=== PATIENT | male | born 1960 | race Two or more races ===

== ENCOUNTER 2025-03-20 10:01 | Emergency (ER) | payer MEDICAID ==
[~2025-03-20] VITALS: Ht 182.9 cm; Wt 80.0 kg
[2025-03-20 10:07] VITALS: O2SAT 96
[2025-03-20 10:45] LABS: BASOPHILS % 0.9 % (0.0-2.0); EOSINOPHILS % 5.4 % (0.0-5.0); HEMATOCRIT. 36.5 % (42.0-52.0); HEMOGLOBIN. 11.6 g/dL (14.0-18.0); LYMPHOCYTES % 17.8 % (20.0-50.0); MEAN PLATELET VOLUME 8.0 fl (7.4-10.4); MONOCYTES % 9.5 % (2.0-8.0); NEUTROPHILS % 66.4 % (40.0-76.0); PLATELET 309 x1000/uL (130-400); RED BLOOD CELL COUNT 4.66 mill/uL (4.7-6.1); RED CELL DISTRIBUTION WIDTH 20.1 % (11.6-14.6)
[2025-03-20 11:05] LABS: CREATININE 0.9 mg/dL (0.6-1.3); UREA NITROGEN BLOOD 9 mg/dL (9-23)
[2025-03-20 11:06] LABS: ETHANOL BLOOD 63 mg/dL (<10)
[2025-03-20 11:07] LABS: ASPARTATE AMINOTRANSFERASE 31 IU/L (<34); BILIRUBIN DIRECT 0.1 mg/dL (<=3.0)
[2025-03-20 11:08] LABS: BILIRUBIN TOTAL 0.5 mg/dL (0.1-1.0); PROTEIN TOTAL 7.7 g/dL (6.0-8.3)
[2025-03-20 11:27] LABS: *AMPHETAMINES SCREEN URINE NEGATIVE (NEGATIVE)
[2025-03-20 11:28] LABS: *BARBITURATES SCREEN URINE NEGATIVE (NEGATIVE); *BENZODIAZEPINES SCREEN URINE NEGATIVE (NEGATIVE); *COCAINE SCREEN URINE PRESUMPTIVE POSITIVE (NEGATIVE); CANNABINOID URINE SCREEN PRESUMPTIVE POSITIVE (NEGATIVE); ECSTASY MDMA SCREEN URINE NEGATIVE (NEGATIVE); METHADONE URINE SCREEN NEGATIVE (NEGATIVE); OPIATES URINE SCREEN NEGATIVE (NEGATIVE); PHENCYCLIDINE URINE SCREEN NEGATIVE (NEGATIVE)
[2025-03-20] MEDS: POTASSIUM CHLORIDE 20MEQ TABLET SR PO ONE (12:15)
[2025-03-21] MEDS: POTASSIUM CHLORIDE 20MEQ/PACKET PO ONE (03:34)
[2025-03-21 05:35] VITALS: BP 131/76; PULSE 54; RESP 20; TEMP 36.9; O2SAT 98
== END 2025-03-21 05:54 ==
LOC: ER 10:01
DX: F99 Mental disorder, not otherwise specified (principal); I49.9 Cardiac arrhythmia, unspecified; R51.9 Headache, unspecified; G40.909 Epilepsy, unspecified, not intractable, without status epilepticus; Z59.00 Homelessness unspecified; Z20.822 Contact with and (suspected) exposure to COVID-19; Z98.890 Other specified postprocedural states
CPT/HCPCS: 36415; 71045; 80048; 80076; 80305; 80320; 85025; 87426; 93005; 99285; G0480